=== PATIENT | female | born 1995 | race Asian ===

== ENCOUNTER 2017-03-05 11:18 | Emergency (ER) | payer OTHER ==
[~2017-03-05] VITALS: Ht 170.2 cm; Wt 67.2 kg
[2017-03-05 11:23] VITALS: TEMP 37.1; Ht 170.2 cm; Wt 67.2 kg
[2017-03-05] MEDS ORDERED: NEOM1SOL7 OTL (11:44)
[2017-03-05] MEDS ORDERED: NEOM1SOL7 OTR (11:46)
--- NOTE | 2017-03-05 12:10 | EMERGENCY ROOM VISIT NOTE ---
ED Visit Note First contact with patient: 11:49 CHIEF COMPLAINT: Decreased hearing, right ear pain HISTORY OF PRESENT ILLNESS: This 21-year-old female patient presents to the emergency department, ambulatory, complaining of decreased hearing in her right ear. The patient states she was seen at urgent care on the 16th of this month, when she was placed on Cortisporin eardrops. She has been using the Cortisporin drops in both ears, but has only experienced improvement in her left ear. The patient states her left ear feels completely normal, however now she is experiencing a fullness, discomfort, and decreased hearing in the right ear. She states she is also occasionally having some numbness in the ear when using the drops. She thought the drops help overnight, but she has not experienced improvement. She denies any upper respiratory symptoms including fever, chills, nausea, vomiting, congestion, cough, sore throat, runny nose. The patient denies any drainage or bleeding coming from the ear. REVIEW OF SYSTEMS: A 10 system review of systems was performed with positives and pertinent negatives listed in the history of present illness. All other systems were reviewed and are negative. ALLERGIES: None MEDICATIONS: None PMH: None SOCIAL HISTORY: The patient is a [email or web address] student. She lives locally with her remain. The patient denies drug, alcohol, tobacco use. PHYSICAL EXAM: VITALS: Vitals are noted on the nurse's note and reviewed by myself. Vital signs stable. GENERAL: This is a 21-year-old female, in no acute distress, nondiaphoretic, well-developed well-nourished. SKIN: The skin was without rashes, erythema, edema, or bruising. There is no tenting of the skin. Capillary reflex less than 2 seconds. HEAD: Normocephalic atraumatic. EARS: Right External auditory canal does have some soft cerumen build-up in the canal. After removal, examination was normal and as follows. External auditory canals clear, tympanic membranes pearly cox without erythema or effusion bilaterally. EYES: Pupils equal round and reactive to light and accommodation. Conjunctivae without injection, sclerae without icterus. Extraocular movements intact. NOSE: Patent, turbinates without inflammation or discharge. No sinus tenderness. MOUTH: Mucous membranes moist. Tonsils are not enlarged. Pharynx without erythema or exudate. Uvula midline. Airway patent. Tongue does not deviate. NECK: Supple without nuchal rigidity. No lymphadenopathy. No thyromegaly. Cervical spine is nontender. No JVD. HEART: Regular rate and rhythm without murmurs gallops or rubs. LUNGS: Clear to auscultation bilaterally without wheezes, rales or rhonchi. No dullness to percussion. No retractions or accessory muscle use. MUSCULOSKELETAL: No muscle atrophy, erythema, or edema noted. Full range of motion without joint tenderness in all extremities. No tenderness to palpation. Normal gait. Strength 5/5 throughout. NEURO: Patient was alert and oriented to person place and time. Normal sensation to light and sharp touch. Deep tendon reflexes 2+ throughout. No focal neurological deficits. EMERGENCY DEPARTMENT COURSE: The patient was seen and evaluated as above. She did have soft cerumen which was obstructing the vision of the tympanic membrane on initial evaluation of the right ear. This was removed easily with a cerumen spoon. On further inspection of the ear, there is no erythema, discharge, or other abnormalities or signs of an infection observed. I do suspect eustachian tube dysfunction related to the patient's recent illness. I encouraged patient to use medications outpatient, and follow up with her PCP or [facility] if no improvement in 1-2 weeks. The patient is in agreement with the assessment and plan. She was discharged home in good condition. I attest that I have personally reviewed the patient's current medication list. Patient was found to have normal blood pressure on screening and does not require follow-up. DIFFERENTIAL DIAGNOSIS: Eustachian tube dysfunction, otitis media, otitis externa, upper respiratory infection, acute sinusitis, TM rupture, malignancy, and others DIAGNOSIS: Eustachian tube dysfunction DISCHARGE INSTRUCTIONS & TREATMENT: You were seen in the emergency department for muffled hearing and earache on the right. I do suspect a eustachian tube dysfunction, possibly associated with your previous ear infection. Please use Zyrtec (cetirizine) 10 mg daily at night for the next 1 week at least. This is an antihistamine and can be found [id number]. If you're not experiencing relief in one week with the Zyrtec, please add Flonase, one spray in each nostril 1-2 times per day. If you continue to experience discomfort after that point, please follow up with [facility] and/or an molder offbearer. Please return to the emergency department for worsening earache, congestion, earache, drainage from the ear, fever, chills, or other concerning symptoms. Please follow up with [facility] and 3-5 days for recheck of your complaints. Current/Historical Medications Scheduled Efyutyar-Opkzvdkqe-Ul (Otic) (Neomycin/Polymyxin/Hc), 1 DROP OTL QID Rhvmgxrq-Lcvwinohw-Tx (Otic) (Neomycin/Polymyxin/Hc), 1 DROP OTR QID Allergies Coded Allergies: No Known Allergies (Unverified , 03/05/17) Vital Signs Date Time Temp Pulse Resp B/P (MAP) Pulse Ox O2 Delivery O2 Flow Rate FiO2 03/05/17 12:15 89 15 133/72 100 03/05/17 11:23 37.1 100 18 133/92 99 Room Air Departure Information Impression Primary Impression: Eustachian tube dysfunction Dispostion Home / Self-Care Condition GOOD Referrals No Doctor, Assigned (PCP) James Magana M.D. [facility] Patient Instructions ED Earwax Removal, My [facility] Additional Instructions You were seen in the emergency department for muffled hearing and earache on the right. I do suspect a eustachian tube dysfunction, possibly associated with your previous ear infection. Please use Zyrtec (cetirizine) 10 mg daily at night for the next 1 week at least. This is an antihistamine and can be found [id number]. If you're not experiencing relief in one week with the Zyrtec, please add Flonase, one spray in each nostril 1-2 times per day. If you continue to experience discomfort after that point, please follow up with [facility] and/or an molder offbearer. Please return to the emergency department for worsening earache, congestion, earache, drainage from the ear, fever, chills, or other concerning symptoms. Please follow up with [facility] and 3-5 days for recheck of your complaints. Problem Qualifiers Primary Impression: Eustachian tube dysfunction Laterality: left Qualified Codes: H69.82 - Other specified disorders of eustachian tube, left ear
[2017-03-05 12:15] VITALS: BP 133/72; PULSE 89; O2SAT 100
== END 2017-03-05 12:15 | disposition home or self-care (01) ==
LOC: C.EDB 11:22 → EDBD 11:22 → C.EDD 12:15
DX: H69.81 Other specified disorders of Eustachian tube, right ear (principal); H92.01 Otalgia, right ear